=== PATIENT | female | born 1980 | race Caucasian/White ===

== ENCOUNTER 2024-11-30 00:46 | Inpatient (IN) | payer OTHER ==
[2024-11-30] MEDS: SODIUM CHLORIDE 0.9% 1,000 ML IV ONE (01:18)
[2024-11-30] MEDS: METOCLOPRAMIDE 5 MG/ML 2 ML VIAL IVP STA (01:20)
[2024-11-30] MEDS: MORPHINE SULFATE 4 MG/ML SYRINGE IVP PRN (01:37)
[2024-11-30 01:54] LABS: Basophils # (A) 0.03 10*3/uL (0.00-0.10); Basophils % (A) 0.3 %; Eosinophils # (A) 0.19 10*3/uL (0.04-0.35); Eosinophils % (A) 2.1 %; HCT 27.7 % (37.2-46.3); Lymphocytes # (A) 2.22 10*3/uL (0.90-5.00); Lymphocytes % (A) 24.3 %; MCH 15.6 pg (27.0-32.0); MCHC 25.3 g/dL (32.0-37.0); MCV 61.6 fL (80.0-97.0); Monocytes # (A) 0.74 10*3/uL (0.20-1.00); Monocytes % (A) 8.1 %; Neutrophils % (A) 64.8 %; Platelet Count 346 10*3/uL (140-440); RDW 22.5 % (11.5-14.5); WBC 9.12 10*3/uL (4.50-10.00)
[2024-11-30 02:12] LABS: ALT 49 U/L (4-34); AST 102 U/L (14-36); African American GFR (CKD) >90 (>60 ml/min/1.73 sqM); Albumin 3.6 g/dL (3.5-5.0); Alkaline Phosphatase 93 U/L (38-126); Anion Gap 8 mmol/L; Blood Urea Nitrogen 8 mg/dL (7-17); Calcium 8.9 mg/dL (8.4-10.2); Carbon Dioxide 26 mmol/L (22-30); Chloride 105 mmol/L (98-107); Glucose 119 mg/dL (74-99); Non-African American GFR(CKD) >90 (>60 ml/min/1.73 sqM); Sodium 139 mmol/L (137-145); Total Bilirubin 0.6 mg/dL (0.2-1.3); Total Protein 6.4 g/dL (6.3-8.2)
[2024-11-30] MEDS ORDERED: NALOXONE 0.4 MG/ML 1 ML VIAL IV PRN (02:15)
[2024-11-30 02:17] LABS: Anisocytosis (M) Present
--- NOTE | 2024-11-30 02:19 | ED ---
Abdominal Pain HPI - General Chief Complaint: Abdominal Pain Stated Complaint: Kidney stones Time Seen by Provider: 11/30/24 00:57 Source: patient, EMS Mode of arrival: EMS Limitations: no limitations - History of Present Illness Initial Comments: 44-year-old female presenting as a transfer from [facility]. Patient started having right-sided flank pain last night that wraps around to the abdomen and worsened today. She was seen at [facility] and was diagnosed with UTI and 3 mm ureteral stone. She was treated with 1 g of Rocephin and tra nsferred here for urology. She was also found to be anemic with a hemoglobin of 7.2. Patient has a history of anemia requiring transfusion. She had a colonoscopy earlier this year in September and also had surgery for severe hemorrhoids which were causing a significant amount of bleeding. She does r eport that her stool is a bit darker than usual. No bright red rectal bleeding. No blood thinners. No hematuria. - Related Data Home Medications Medication Instructions Recorded Confirmed Baclofen [Lioresal] 10 mg PO BID PRN 11/30/24 11/30/24 Cetirizine HCl [Zyrtec] 10 mg PO HS 11/30/24 11/30/24 Ipratropium-Albuterol Nebulize 3 ml INHALATION RT-QID PRN 11/30/24 11/30/24 [Duoneb 0.5 mg-3 mg/3 ml Soln] Levothyroxine Sodium [Synthroid] 200 mcg PO DAILY 11/30/24 11/30/24 Montelukast [Singulair] 10 mg PO HS 11/30/24 11/30/24 Omeprazole [PriLOSEC] 20 mg PO DAILY 11/30/24 11/30/24 hydrOXYzine pamoate [Vistaril] 25 mg PO HS PRN 11/30/24 11/30/24 rOPINIRole HCL [Requip] 1.5 mg PO HS PRN 11/30/24 11/30/24 rOPINIRole HCL [Requip] 3 mg PO HS 11/30/24 11/30/24 Allergies Allergy/AdvReac Type Severity Reaction Status Date / Time clindamycin Allergy Rash/Hives Verified 11/30/24 08:56 onion Allergy Rash/Hives Verified 11/30/24 08:56 spider venom Allergy Rash/Hives Verified 11/30/24 08:56 sulfamethoxazole Allergy Rash/Hives Verified 11/30/24 08:56 [From Bactrim] trimethoprim [From Bactrim] Allergy Rash/Hives Verified 11/30/24 08:56 Review of Systems ROS Statement: Those systems with pertinent positive or pertinent negative responses have been documented in the HPI. ROS Other: All systems not noted in ROS Statement are negative. Past Medical History Past Medical History: GERD/Reflux, Thyroid Disorder General Exam Limitations: no limitations General appearance: alert, in no apparent distress Head exam: Present: atraumatic, normocephalic, normal inspection Eye exam: Present: normal appearance, EOMI Neck exam: Present: normal inspection. Absent: meningismus Respiratory exam: Present: normal lung sounds bilaterally. Absent: respiratory distress, wheezes, rales, rhonchi, stridor Cardiovascular Exam: Present: regular rate, normal rhythm, normal heart sounds. Absent: systolic murmur, diastolic murmur, rubs, gallop, clicks Rectal exam: Present: normal inspection, normal rectal tone Neurological exam: Present: alert, oriented X3 Psychiatric exam: Present: normal affect, normal mood Skin exam: Present: warm, dry, normal color Course Vital Signs 11/30/24 11/30/24 11/30/24 00:48 04:09 05:50 Temperature 98.0 F 97.6 F 97.6 F Pulse Rate 82 86 95 Respiratory 18 18 18 Rate Blood Pressure 132/75 144/80 124/68 O2 Sat by Pulse 97 96 95 Oximetry Medical Decision Making - Medical Decision Making Was pt. sent in by a medical professional or institution (, PA, [employer], urgent care, hospital, or [facility]...) When possible be specific @ -Transferred from [facility] Did you speak to anyone other than the patient for history (EMS, parent, family, police, friend...)? What history was obtained from this source @ -No Did you review nursing and triage notes (agree or disagree)? Why? @ -I reviewed and agree with nursing and triage notes Were old charts reviewed (outside hosp., previous admission, EMS record, old EKG, old radiological studies, urgent care reports/EKG's, [facility] records)? Report findings @ -Reviewed [facility] records Differential Diagnosis (chest pain, altered mental status, abdominal pain women, abdominal pain men, vaginal bleeding, weakness, fever, dyspnea, syncope, headache, dizziness, GI bleed, back pain, seizure, CVA, palpatations, mental health, musculoskeletal)? @ -Not applicable EKG interpreted by me (3pts min.). @ -As above X-rays interpreted by me (1pt min.). @ -None done CT interpreted by me (1pt min.). @ -None done U/S interpreted by me (1pt. min.). @ -None done What testing was considered but not performed or refused? (CT, X-rays, U/S, labs)? Why? @ -None What meds were considered but not given or refused? Why? @ -None Did you discuss the management of the patient with other professionals (professionals i.e. , PA, [employer], lab, RT, psych nurse, social media community manager, production broaching machine operator, te acher, registration officer, manager of case management)? Give summary @ -My attending spoke with the sound physician on-call who accepted admission Was smoking cessation discussed for >3mins.? @ -No Was critical care preformed (if so, how long)? @ -No Were there social determinants of health that impacted care today? How? (Homelessness, low income, unemployed, alcoholism, drug addiction, transportation, low edu. Level, literacy, decrease access to med. care, residential, rehab)? @ -No Was there de-escalation of care discussed even if they declined (Discuss DNR or withdrawal of care, Hospice)? DNR status @ -No What co-morbidities impacted this encounter? (DM, HTN, Smoking, COPD, CAD, Cancer, CVA, ARF, Chemo, Hep., AIDS, mental health diagnosis, sleep apnea, morbid obesity)? @ -None Was patient admitted / discharged? Hospital course, mention meds given and route, prescriptions, significant lab abnormalities, going to OR and other pertinent info. @ -44-year-old female transferred from [facility] to our facility for UTI with kidney stone. She has a 3 mm ureteral stone with UTI, she was treated with 1 g of Rocephin at [facility]. She was also found to have a hemoglobin of 7, patient states she has history of anemia. She does state that earlier today her stools were darker, negative occult. She does have history of severe hemorrhoids, she had a colonoscopy earlier this year and surgery for her hemorrhoids and she has not had bleeding from them since. Patient will be admitted for evaluation by urology and for monitoring hemoglobin. She is agreeable with this plan. I discussed this case with my attending Dr. Henao Undiagnosed new problem with uncertain prognosis? @ -No Drug Therapy requiring intensive monitoring for toxicity (Heparin, Nitro, Insulin, Cardizem)? @ -No Were any procedures done? @ -No Diagnosis/symptom? @ -UTI with kidney stone, anemia Acute, or Chronic, or Acute on Chronic? @ -Acute Uncomplicated (without systemic symptoms) or Complicated (systemic symptoms)? @ -Complicated Side effects of treatment? @ -No Exacerbation, Progression, or Severe Exacerbation? @ -No Poses a threat to life or bodily function? How? (Chest pain, USA, AR, pneumonia, PE, COPD, DKA, ARF, appy, cholecystitis, CVA, Diverticulitis, Homicidal, Suicidal, threat to staff... and all critical care pts) @ -Potential - Lab Data Result diagrams: 11/30/24 06:54 11/30/24 06:54 Lab Results 11/30/24 11/30/24 11/30/24 Range/Units 01:27 01:27 01:27 WBC 9.12 (4.50-10.00) 10*3/uL RBC 4.50 (4.10-5.20) 10*6/uL Hgb 7.0 L (12.0-15.0) g/dL Hct 27.7 L (37.2-46.3) % MCV 61.6 L (80.0-97.0) fL MCH 15.6 L (27.0-32.0) pg MCHC 25.3 L (32.0-37.0) g/dL Plt Count 346 (140-440) 10*3/uL MPV 9.0 L (9.5-12.2) fL Immature Gran % (Auto) 0.4 % Neutrophils % 64.8 % Lymphocytes % 24.3 % Monocytes % 8.1 % Eosinophils % 2.1 % Basophils % 0.3 % Immature Gran # 0.04 (0.00-0.04) 10*3/uL Neutrophils # 5.90 (1.80-7.70) 10*3/uL Lymphocytes # 2.22 (0.90-5.00) 10*3/uL Monocytes # 0.74 (0.20-1.00) 10*3/uL Eosinophils # 0.19 (0.04-0.35) 10*3/uL Basophils # 0.03 (0.00-0.10) 10*3/uL Differential Comment [employer] Manual Slide Review Performed Anisocytosis (manual) Present Sodium 139 (137-145) mmol/L Potassium 4.0 (3.5-5.1) mmol/L Chloride 105 (98-107) mmol/L Carbon Dioxide 26 (22-30) mmol/L Anion Gap 8 mmol/L BUN 8 (7-17) mg/dL Creatinine 0.66 (0.52-1.04) mg/dL Est GFR (CKD-EPI)AfAm >90 (>60 ml/min/1.73 sqM) Est GFR (CKD-EPI)NonAf >90 (>60 ml/min/1.73 sqM) Glucose 119 H (74-99) mg/dL Plasma Lactic Acid Karthik 1.1 (0.7-2.0) mmol/L Calcium 8.9 (8.4-10.2) mg/dL Total Bilirubin 0.6 (0.2-1.3) mg/dL AST 102 H (14-36) U/L ALT 49 H (4-34) U/L Alkaline Phosphatase 93 (38-126) U/L Total Protein 6.4 (6.3-8.2) g/dL Albumin 3.6 (3.5-5.0) g/dL Stool Occult Blood (Negative) 11/30/24 Range/Units 02:02 WBC (4.50-10.00) 10*3/uL RBC (4.10-5.20) 10*6/uL Hgb (12.0-15.0) g/dL Hct (37.2-46.3) % MCV (80.0-97.0) fL MCH (27.0-32.0) pg MCHC (32.0-37.0) g/dL Plt Count (140-440) 10*3/uL MPV (9.5-12.2) fL Immature Gran % (Auto) % Neutrophils % % Lymphocytes % % Monocytes % % Eosinophils % % Basophils % % Immature Gran # (0.00-0.04) 10*3/uL Neutrophils # (1.80-7.70) 10*3/uL Lymphocytes # (0.90-5.00) 10*3/uL Monocytes # (0.20-1.00) 10*3/uL Eosinophils # (0.04-0.35) 10*3/uL Basophils # (0.00-0.10) 10*3/uL Differential Comment Manual Slide Review Anisocytosis (manual) Sodium (137-145) mmol/L Potassium (3.5-5.1) mmol/L Chloride (98-107) mmol/L Carbon Dioxide (22-30) mmol/L Anion Gap mmol/L BUN (7-17) mg/dL Creatinine (0.52-1.04) mg/dL Est GFR (CKD-EPI)AfAm (>60 ml/min/1.73 sqM) Est GFR (CKD-EPI)NonAf (>60 ml/min/1.73 sqM) Glucose (74-99) mg/dL Plasma Lactic Acid Karthik (0.7-2.0) mmol/L Calcium (8.4-10.2) mg/dL Total Bilirubin (0.2-1.3) mg/dL AST (14-36) U/L ALT (4-34) U/L Alkaline Phosphatase (38-126) U/L Total Protein (6.3-8.2) g/dL Albumin (3.5-5.0) g/dL Stool Occult Blood Negative (Negative) Disposition Clinical Impression: UTI (urinary tract infection), Kidney stone, Anemia Disposition: ADMITTED IP TO THIS HOSP Condition: Fair
[2024-11-30] MEDS: NICOTINE 21MG/24HR PATCH TRANSDERM STA (02:27)
[2024-11-30 04:52] LABS: WBC,Urine <1 /hpf (0-5)
[2024-11-30] MEDS ORDERED: ACETAMINOPHEN TAB 325 MG TAB PO PRN (05:08)
--- NOTE | 2024-11-30 05:15 | P.HPIM ---
History of Present Illness H&P Date: 11/30/24 History of present illness; Patient is a 44-year-old female with history of hypothyroidism, anemia who presents with right-sided flank pain. Patient is a transfer from [place] and was diagnosed with UTI and [address] abdomen pelvis showed calculus of distal right ureter 3 mm stone with no hydronephrosis. UA was positive for nitrates, bacteria, RBC 2+, blood. She was given 1 g Rocephin. Patient states that pain began Wednesday night and travels from her right flank to her right groin. She does have some mild burning sensation while urinating. She is experienced no hematuria and takes no blood thinners. She denies any rectal bleeding. She also has some associated nausea which has improved at this time. Currently she denies fever, chills, chest pain, dyspnea, and dizziness. Spoke with the ER physician, patient admission was accepted by internal medicine service for treatment. REVIEW OF SYSTEMS: Pertinent positives and negatives noted in HPI. PHYSICAL EXAMINATION: Vitals reviewed GENERAL: Resting comfortably in bed. Obese. EYES: PERRL, no scleral injection or icterus. No vision loss HENT: Normocephalic, atraumatic, hearing grossly intact, moist mucous membranes NECK: No tracheal deviation, full range of motion. CARDIOVASCULAR: S1 and S2 present. No murmurs, rubs, or gallops. PULMONARY: Distant breath sounds ABDOMEN: Soft, right-sided tenderness, nondistended. No palpable organomegaly. MUSCULOSKELETAL: No apparent joint swelling and deformities. EXTREMITIES: No apparent cyanosis, clubbing. No pedal edema. NEUROLOGICAL: Alert and oriented. Gross neurological examination with no apparent focal deficits. SKIN: No apparent rashes. ER FINDINGS: Labs significant for hemoglobin 7.0, platelets 346, glucose 119, AST 102, ALT 49. Imaging and labs from other facility reviewed in HPI Assessment and Plan: In summary, patient is a 44-year-old female with history of hypothyroidism, anemia who presents with right-sided flank pain. # Right sided nephrolithiasis without hydroureteronephrosis #Pyelonephritis Begin ketorolac IVP every 6 hours, acetaminophen 650 mg every 4 hours as needed for pain Begin IV NS at 130 Begin Flomax 0.4 mg daily Begin Zofran every 8 hours as needed for nausea and vomiting Begin ceftriaxone 2 g IVP Repeat UA ordered, outside hospital records showing pansensitive E. coli in urine culture Urology consulted #Chronic microcytic anemia Hemodynamically stable, no known source of active bleed Iron panel ordered Type and screen if hemoglobin falls below 7 Monitor CBC - Consideration of hemoglobin electrophoresis Chronic medical conditions Hypothyroidism GERD Resume home meds once verified DVT ppx: early ambulation, hold anticoagulation due to bleeding risk Code status: Full code F: IV fluids E: Replete as needed N: N.p.o. A: Ambulatory Anticipated discharge place: Pending clinical course Anticipated discharge time: Pending clinical course Dictation was produced using [employer] dictation software. Please excuse any grammatical, word or spelling errors. I saw and evaluated the patient during the mora and critical portions of this encounter, and discussed the case in detail with the resident author of this note, I agree with the Assessment and Plan, and my changes, if any, are highlighted in blue. Past Medical History Past Medical History: GERD/Reflux, Thyroid Disorder Medications and Allergies Allergies Allergy/AdvReac Type Severity Reaction Status Date / Time clindamycin Allergy Rash/Hives Verified 11/30/24 00:56 onion Allergy Rash/Hives Verified 11/30/24 00:56 spider venom Allergy Rash/Hives Verified 11/30/24 00:56 sulfamethoxazole Allergy Rash/Hives Verified 11/30/24 00:56 [From Bactrim] trimethoprim [From Bactrim] Allergy Rash/Hives Verified 11/30/24 00:56 Physical Exam Osteopathic Statement: *. No significant issues noted on an osteopathic structural exam other than those noted in the History and Physical/Consult. Vitals: Vital Signs Temp Pulse Resp BP Pulse Ox 11/30/24 00:48 98.0 F 82 18 132/75 97 Intake and Output 11/29/24 11/29/24 11/30/24 14:59 22:59 06:59 Other: Weight 127.006 kg Results CBC & Chem 7: 11/30/24 01:27 11/30/24 01:27 Labs: Abnormal Lab Results - Last 24 Hours (Table) 11/30/24 11/30/24 Range/Units 01:27 01:27 Hgb 7.0 L (12.0-15.0) g/dL Hct 27.7 L (37.2-46.3) % MCV 61.6 L (80.0-97.0) fL MCH 15.6 L (27.0-32.0) pg MCHC 25.3 L (32.0-37.0) g/dL MPV 9.0 L (9.5-12.2) fL Glucose 119 H (74-99) mg/dL AST 102 H (14-36) U/L ALT 49 H (4-34) U/L
[2024-11-30] MEDS: SODIUM CHLORIDE 0.9% 1,000 ML IV SCH (05:52)
[2024-11-30 06:06] LABS: Color,Urine Yellow
[2024-11-30 06:07] LABS: Bilirubin,Urine Negative (Negative); Blood,Urine Small (Negative); Glucose,Urine (UA) Negative (Negative); Ketones,Urine Negative (Negative); PH, Urine 6.5 (5.0-8.0); Protein,Urine Negative (Negative); Specific Gravity,Urine 1.007 (1.001-1.035)
[2024-11-30 06:08] LABS: Appearance,Urine Turbid (Clear); Leukocyte Esterase,Urine Large (Negative); Nitrite,Urine Positive (Negative); Urobilinogen,Urine <2.0 mg/dL (<2.0)
[2024-11-30 07:55] LABS: Basophils # (A) 0.05 10*3/uL (0.00-0.10); Basophils % (A) 0.6 %; Eosinophils # (A) 0.12 10*3/uL (0.04-0.35); Eosinophils % (A) 1.4 %; HCT 29.7 % (37.2-46.3); HGB 7.2 g/dL (12.0-15.0); Lymphocytes % (A) 23.1 %; MCH 15.4 pg (27.0-32.0); MCHC 24.2 g/dL (32.0-37.0); MCV 63.5 fL (80.0-97.0); Mean Platelet Volume 9.3 fL (9.5-12.2); Monocytes # (A) 0.82 10*3/uL (0.20-1.00); Monocytes % (A) 9.5 %; Neutrophils # (A) 5.64 10*3/uL (1.80-7.70); Neutrophils % (A) 64.9 %; Platelet Count 373 10*3/uL (140-440); RBC 4.68 10*6/uL (4.10-5.20); RDW 22.6 % (11.5-14.5); WBC 8.67 10*3/uL (4.50-10.00)
[2024-11-30 08:06] LABS: ALT 52 U/L (4-34); AST 64 U/L (14-36); African American GFR (CKD) >90 (>60 ml/min/1.73 sqM); Albumin 3.5 g/dL (3.5-5.0); Alkaline Phosphatase 89 U/L (38-126); Anion Gap 6 mmol/L; Blood Urea Nitrogen 9 mg/dL (7-17); Calcium 8.7 mg/dL (8.4-10.2); Carbon Dioxide 23 mmol/L (22-30); Chloride 111 mmol/L (98-107); Glucose 93 mg/dL (74-99); Non-African American GFR(CKD) >90 (>60 ml/min/1.73 sqM); Potassium 4.6 mmol/L (3.5-5.1); Sodium 140 mmol/L (137-145); Total Bilirubin 0.5 mg/dL (0.2-1.3); Total Protein 6.3 g/dL (6.3-8.2)
[2024-11-30] MEDS: cefTRIAXone 2 GM in DEXTROSE 5% IN WATER 50 ML IVPB SCH (09:09)
[2024-11-30] MEDS: TAMSULOSIN 0.4 MG CAP.ER.24H PO SCH (09:09)
[2024-11-30 15:45] LABS: % Iron Saturation 4.02 (12.00-45.00); Iron 16 UG/DL (50-170); Total Iron Binding Capacity 398 UG/DL (228-460)
[2024-11-30] MEDS: KETOROLAC 15 MG/ML 1 ML VIAL IVP PRN (17:56)
[2024-11-30] MEDS: MONTELUKAST 10 MG TAB PO SCH (20:18)
[2024-11-30] MEDS: polyethylene glycoL 3350 17 GM POWD.PACK PO SCH (21:25)
[2024-11-30] MEDS: PSYLLIUM HUSK 100% 6 GM PACKET PO SCH (21:25)
--- NOTE | 2024-11-30 21:58 | P.GSCN ---
History of Present Illness Consult date: 11/30/24 Reason for Consult: Ureteral stone History of present illness: This is a 44-year-old female presents as a transfer from [facility] f or intractable pain for ureteral stone. Patient presented to [facility] with ongoing right-sided flank pain for the past 2 weeks. Pain is associated with bladder pressure. Denied any fevers, chills, nausea or vomiting. She does have a history of kidney stones but never required any surgical intervention. She underwent a CT abdomen and pelvis that showed evidence of a 3 mm right-sided distal stone with hydronephrosis, = urine culture from [facility] is growing E. coli which is singer susceptible. She has been on ceftriaxone. She is hemodynamically stable and her white count is within normal limits. On evaluation this morning she continues to have persistent flank pain. Review of Systems - Constitutional Denies fever, Denies weight loss - EENT Ears, nose, mouth and throat: Denies dysphagia - Gastrointestinal Reports abdominal pain, Denies nausea, Denies vomiting - Integumentary Denies rash, Denies unusual bruising - Neurological Denies headaches, Denies syncope Past Medical History Past Medical History: GERD/Reflux, Thyroid Disorder Additional Past Medical History / Comment(s): Anemia History of Any Multi-Drug Resistant Organisms: None Reported Past Surgical History: Cholecystectomy, Hysterectomy Smoking Status: Current every day smoker Medications and Allergies Home Medications Medication Instructions Recorded Confirmed Type Baclofen [Lioresal] 10 mg PO BID PRN 11/30/24 11/30/24 History Cetirizine HCl [Zyrtec] 10 mg PO HS 11/30/24 11/30/24 History Ipratropium-Albuterol Nebulize 3 ml INHALATION RT-QID PRN 11/30/24 11/30/24 History [Duoneb 0.5 mg-3 mg/3 ml Soln] Levothyroxine Sodium [Synthroid] 200 mcg PO DAILY 11/30/24 11/30/24 History Montelukast [Singulair] 10 mg PO HS 11/30/24 11/30/24 History Omeprazole [PriLOSEC] 20 mg PO DAILY 11/30/24 11/30/24 History hydrOXYzine pamoate [Vistaril] 25 mg PO HS PRN 11/30/24 11/30/24 History rOPINIRole HCL [Requip] 1.5 mg PO HS PRN 11/30/24 11/30/24 History rOPINIRole HCL [Requip] 3 mg PO HS 11/30/24 11/30/24 History Allergies Allergy/AdvReac Type Severity Reaction Status Date / Time clindamycin Allergy Rash/Hives Verified 11/30/24 08:56 onion Allergy Rash/Hives Verified 11/30/24 08:56 spider venom Allergy Rash/Hives Verified 11/30/24 08:56 sulfamethoxazole Allergy Rash/Hives Verified 11/30/24 08:56 [From Bactrim] trimethoprim [From Bactrim] Allergy Rash/Hives Verified 11/30/24 08:56 Surgical - Exam Vital Signs Temp Pulse Resp BP Pulse Ox 98.0 F 82 18 132/75 97 11/30/24 00:48 11/30/24 00:48 11/30/24 00:48 11/30/24 00:48 11/30/24 00:48 - General no distress, moderate pain - Eyes normal ocular movement, no pale - ENT normal nares, normal mucosa - Respiratory normal expansion, normal respiratory effort - Abdomen Abdomen: soft, tender (right flank) Results - Labs 11/30/24 06:54 11/30/24 06:54 Abnormal Lab Results - Last 24 Hours (Table) 11/30/24 11/30/24 11/30/24 Range/Units 01:27 01:27 04:09 Hgb 7.0 L (12.0-15.0) g/dL Hct 27.7 L (37.2-46.3) % MCV 61.6 L (80.0-97.0) fL MCH 15.6 L (27.0-32.0) pg MCHC 25.3 L (32.0-37.0) g/dL MPV 9.0 L (9.5-12.2) fL Chloride (98-107) mmol/L Glucose 119 H (74-99) mg/dL Iron (50-170) UG/DL % Saturation (12.00-45.00) AST 102 H (14-36) U/L ALT 49 H (4-34) U/L Urine Appearance Turbid H (Clear) 11/30/24 11/30/24 Range/Units 06:54 06:54 Hgb 7.2 L (12.0-15.0) g/dL Hct 29.7 L (37.2-46.3) % MCV 63.5 L (80.0-97.0) fL MCH 15.4 L (27.0-32.0) pg MCHC 24.2 L (32.0-37.0) g/dL MPV 9.3 L (9.5-12.2) fL Chloride 111 H (98-107) mmol/L Glucose (74-99) mg/dL Iron 16 L (50-170) UG/DL % Saturation 4.02 L (12.00-45.00) AST 64 H (14-36) U/L ALT 52 H (4-34) U/L Urine Appearance (Clear) Diabetes panel 11/30/24 11/30/24 Range/Units 01:27 06:54 Sodium 139 140 (137-145) mmol/L Potassium 4.0 4.6 (3.5-5.1) mmol/L Chloride 105 111 H (98-107) mmol/L Carbon Dioxide 26 23 (22-30) mmol/L BUN 8 9 (7-17) mg/dL Creatinine 0.66 0.61 (0.52-1.04) mg/dL Glucose 119 H 93 (74-99) mg/dL Calcium 8.9 8.7 (8.4-10.2) mg/dL AST 102 H 64 H (14-36) U/L ALT 49 H 52 H (4-34) U/L Alkaline Phosphatase 93 89 (38-126) U/L Total Protein 6.4 6.3 (6.3-8.2) g/dL Albumin 3.6 3.5 (3.5-5.0) g/dL Calcium panel 11/30/24 11/30/24 Range/Units 01:27 06:54 Calcium 8.9 8.7 (8.4-10.2) mg/dL Albumin 3.6 3.5 (3.5-5.0) g/dL Pituitary panel 11/30/24 11/30/24 Range/Units 01:27 06:54 Sodium 139 140 (137-145) mmol/L Potassium 4.0 4.6 (3.5-5.1) mmol/L Chloride 105 111 H (98-107) mmol/L Carbon Dioxide 26 23 (22-30) mmol/L BUN 8 9 (7-17) mg/dL Creatinine 0.66 0.61 (0.52-1.04) mg/dL Glucose 119 H 93 (74-99) mg/dL Calcium 8.9 8.7 (8.4-10.2) mg/dL Adrenal panel 11/30/24 11/30/24 Range/Units 01:27 06:54 Sodium 139 140 (137-145) mmol/L Potassium 4.0 4.6 (3.5-5.1) mmol/L Chloride 105 111 H (98-107) mmol/L Carbon Dioxide 26 23 (22-30) mmol/L BUN 8 9 (7-17) mg/dL Creatinine 0.66 0.61 (0.52-1.04) mg/dL Glucose 119 H 93 (74-99) mg/dL Calcium 8.9 8.7 (8.4-10.2) mg/dL Total Bilirubin 0.6 0.5 (0.2-1.3) mg/dL AST 102 H 64 H (14-36) U/L ALT 49 H 52 H (4-34) U/L Alkaline Phosphatase 93 89 (38-126) U/L Total Protein 6.4 6.3 (6.3-8.2) g/dL Albumin 3.6 3.5 (3.5-5.0) g/dL Assessment and Plan Assessment: 44-year-old female with history of a 3 mm right-sided distal ureteral stone, having intractable pain. Urine culture from outside hospital showed E. coli she is being on ceftriaxone. At this time we will continue with pain control and IV fluid for another 24 hours, if she continues to have pain tomorrow morning then we will proceed with right-sided ureteroscopy with holmium laser. At that point patient will be on IV antibiotics for 48 hours. Risk-benefit and rationale of surgery was discussed in detail -N.p.o. past midnight - Continue ceftriaxone - OR for right-sided ureteroscopy with holmium laser lithotripsy stone basketing and stent insertion tomorrow, if pain persists
[2024-11-30] MEDS: NICOTINE 21MG/24HR PATCH TRANSDERM SCH (23:54)
[2024-12-01] MEDS: IPRATROPIUM-ALBUTEROL 3 ML NEB INHALATION PRN (00:20)
[2024-12-01] MEDS: IV FLUID CONTINUATION 1,000 ML IV ONE (08:24)
[2024-12-01] MEDS: ONDANSETRON 4 MG/2 ML VIAL IVP PRN (08:35)
[2024-12-01] MEDS: DEXAMETHASONE SOD PHOSPHATE 4 MG/ML 1 ML VIAL IVP STA (08:36)
[2024-12-01] MEDS ORDERED: PROPOFOL 10 MG/ML 20 ML VIAL IV ONE (08:39)
[2024-12-01] MEDS ORDERED: MIDAZOLAM 2 MG/2 ML VIAL ONE (08:39)
[2024-12-01] MEDS ORDERED: KETOROLAC 15 MG/ML 1 ML VIAL ONE (08:39)
[2024-12-01] MEDS ORDERED: SUCCINYLCHOLINE CHLORIDE 200 MG/10 ML VIAL IV ONE (08:39)
[2024-12-01] MEDS ORDERED: fentaNYL (PF) 50 MCG/ML 2 ML AMP ONE (08:39)
[2024-12-01] MEDS ORDERED: LIDOCAINE 1% INJ 10MG/ML (20 ML MDV) ONE (08:39)
--- NOTE | 2024-12-01 09:16 | P.OP ---
Date of Procedure: 12/01/24 Preoperative Diagnosis: Right ureteral calculus with obstruction and colic, urinary tract infection Postoperative Diagnosis: Right ureteral calculus, passed, urinary tract infection Procedure(s) Performed: Cystoscopy, right ureteroscopy with retrograde pyelogram Anesthesia: DARRYL Surgeon: Tej Colmenares Estimated Blood Loss (ml): 0 Pathology: none sent Condition: stable Disposition: PACU Indications for Procedure: The patient is 44. She was referred from [facility] because of an obstructing distal right ureteral stone and a urinary tract infection. She was seen by . She was afebrile. Her white count was normal. Her pain was moderate. Plan was to give her antibiotics overnight and then proceed with a right ureteroscopy and laser lithotripsy to the distal right ureteral stone. Patient is still having pain this morning. Description of Procedure: Patient brought to the operating suite. Given a general anesthetic. Placed lithotomy position sterile prep and drape. The urethra is intubated with a 21 Egyptian sheath and Foroblique lens. It is normal. The bladder wall shows minimal inflammation. Both ureteral orifices are identified. The right ureteral orifice is dilated with an 8 cone-tip catheter. I then passed the semirigid scope up into the distal ureter and do not see a stone. There is edema probably where the stone was. I passed the scope up to about the iliac vessels and see no evidence of stone. I inject contrast and do a retrograde pyelogram all the way up to into the collecting system and see no obstructing stone. I observed the contrast to drain nicely. I do pull out ureteroscopy and there is no stone. The patient must of passed a stone despite having the pain. The bladder is drained. The patient is awakened and returned recovery in good condition. Impression right ureteral calculus passed. Urinary tract infection being treated.
--- NOTE | 2024-12-01 09:30 | FL ---
EXAMINATION TYPE: FL urography retrograde Intraoperative/procedural fluoroscopic services were provid ed. CLINICAL INDICATION:Female, 44 years old with history of Cysto for Rt Kidney Stone; , [facility] FINDINGS: Cystoscopy for right sided stone. No radiographic evidence for complication. Total fluoroscopy time is 21.4 seconds. DAP: 9.0550 Gycm2 Please see the operative/procedural note for further details. [facility], , 12/01/2024 9:28 AM
[2024-12-01] MEDS: LEVOTHYROXINE 100 MCG TAB PO SCH (10:29)
[2024-12-01] MEDS: PANTOPRAZOLE 40 MG TABLET PO SCH (10:29)
[2024-12-01 10:35] VITALS: RESP 18
[2024-12-01 11:17] LABS: Basophils # (A) 0.04 10*3/uL (0.00-0.10); Basophils % (A) 0.5 %; Eosinophils # (A) 0.08 10*3/uL (0.04-0.35); HCT 28.7 % (37.2-46.3); Lymphocytes # (A) 0.91 10*3/uL (0.90-5.00); Lymphocytes % (A) 11.4 %; MCH 15.5 pg (27.0-32.0); MCHC 24.4 g/dL (32.0-37.0); MCV 63.4 fL (80.0-97.0); Mean Platelet Volume 9.6 fL (9.5-12.2); Monocytes # (A) 0.21 10*3/uL (0.20-1.00); Monocytes % (A) 2.6 %; Neutrophils # (A) 6.64 10*3/uL (1.80-7.70); Neutrophils % (A) 83.2 %; Platelet Count 375 10*3/uL (140-440); RBC 4.53 10*6/uL (4.10-5.20); RDW 22.3 % (11.5-14.5); WBC 7.98 10*3/uL (4.50-10.00)
[2024-12-01 11:35] LABS: African American GFR (CKD) >90 (>60 ml/min/1.73 sqM); Anion Gap 7 mmol/L; Blood Urea Nitrogen 8 mg/dL (7-17); Calcium 8.4 mg/dL (8.4-10.2); Carbon Dioxide 23 mmol/L (22-30); Chloride 110 mmol/L (98-107); Glucose 128 mg/dL (74-99); Non-African American GFR(CKD) >90 (>60 ml/min/1.73 sqM); Potassium 4.6 mmol/L (3.5-5.1); Sodium 140 mmol/L (137-145)
[2024-12-01] MEDS ORDERED: SENNOSIDES-DOCUSATE SODIUM 1 EACH TAB PO STA (11:56)
[2024-12-01 12:27] LABS: Anisocytosis (M) Present
[2024-12-01 12:28] LABS: Stomatocytes Present
[2024-12-01 12:39] VITALS: BP 162/89; PULSE 79; TEMP 98.2
[2024-12-01] MEDS: SENNOSIDES-DOCUSATE SODIUM 1 EACH TAB PO STA (12:51)
[2024-12-01] MEDS ORDERED: IBUPROFEN 800 MG TAB PO PRN (14:01)
--- NOTE | 2024-12-01 14:30 | P.PN ---
Subjective Progress Note Date: 12/01/24 Hospital Course: Patient is a 44-year-old female with history of hypothyroidism, anemia who presents with right-sided flank pain. Patient is a transfer from [place] and was diagnosed with UTI and [address] abdomen pelvis showed calculus of distal right ureter 3 mm stone with no hydronephrosis. UA was positive for nitrates, bacteria, RBC 2+, blood. She was given 1 g Rocephin. Patient states that pain began Wednesday night and travels from her right flank to her right groin. She does have some mild burning sensation while urinating. She is experienced no hematuria and takes no blood thinners. She denies any rectal bleeding. She also has some associated nausea which has improved at this time. Currently she denies fever, chills, chest pain, dyspnea, and dizziness. Labs significant for hemoglobin 7.0, platelets 346, glucose 119, AST 102, ALT 49. Imaging and labs from other facility reviewed in HPI: CT abdomen pelvis showed calculus of distal right ureter 3 mm stone with no hydronephrosis. Subjective: Patient seen and examined at bedside. No acute events overnight. Patient complaining of extreme pain from right flank that radiates to groin. States the pain is still there despite procedure. Pertinent positives and negatives as discussed above, a complete review of systems was performed and all other systems are negative. Vitals: Signs Reviewed Physical Exam: General: nontoxic, no distress, appears at stated age Derm: warm, dry, intact Head: atraumatic, normocephalic, symmetric Eyes: EOMI, anicteric sclera Mouth: no lip lesion, mucus membranes moist Cardiovascular: S1 S2 reg, no murmur, rubs, or gallops Lungs: CTA bilateral, no rhonchi, no rales, no accessory muscle use Abdominal: soft, right CVA tenderness, no appreciable organomegaly Extremities: no gross muscle atrophy, no edema, no contractures Neuro: Alert, Oriented, CNII-XII grossly intact, gait normal Psych: well appearing, appropriate affect Data Received Today: Pertinent Labs: Hemoglobin trended down from 6.2 => 7.0, BMP unremarkable, creatinine 0.71, BUN 8 Imaging: N/A Assessment and Plan: Patient is a 44-year-old female with history of hypothyroidism, anemia who presents with right-sided flank pain. #Acute pyelonephritis #Nephrolithiasis Acetaminophen 650 mg every 4 hours as needed, ibuprofen 800 mg p.o. 4 times daily as needed, [place] 5-325 mg p.o. every 6 hours as needed for pain Normal saline at 75 cc an hour Flomax 0.4 mg daily Zofran every 8 hours as needed Continue with ceftriaxone 2 g IVP every 24 hours Repeat UA ordered, outside hospital records showing pansensitive E. coli in urine culture Urology note reviewed, s/p cystoscopy, right ureteroscopy with retrograde pyelogram, is believed that the calculus has passed, no urinary stent necessary #Iron Deficiency Anemia Hemoglobin stable, no known source of active bleed Ferrous sulfate 325 mg p.o. daily with vitamin C Type and screen if hemoglobin falls below 7 Monitor CBC Consideration of hemoglobin electrophoresis Resolved: #Right sided nephrolithiasis without hydroureteronephrosis Chronic medical conditions Hypothyroidism, Synthroid 200 mcg p.o. daily GERD: Protonix DVT ppx: early ambulation, hold anticoagulation due to bleeding risk Code status: Full code F: IV fluids E: Replete as needed N: NPO A: Ambulatory Anticipated discharge place: Pending clinical course Anticipated discharge time: Pending clinical course Sloan Adam MD PGY-1 IM Dictation was produced using [employer] dictation software. please excuse any grammatical, word or spelling errors. I have seen and evaluated the patient today. Discussed with the resident and agree with the residents finding and plan as documented in the resident's note. Changes highlighted in blue font. Objective - Vital Signs Vital signs: Vital Signs Temp 98.1 F 12/01/24 02:00 Pulse 96 12/01/24 02:00 Resp 16 12/01/24 02:00 BP 149/84 12/01/24 02:00 Pulse Ox 96 12/01/24 02:00 FiO2 Intake & Output 11/30/24 12/01/24 12/01/24 18:59 06:59 18:59 Intake Total 1610 0 Balance 1610 0 Weight 127.006 kg Intake: Intake, IV Titration 1610 Amount Sodium Chloride 0.9% 1, 1560 000 ml @ 130 mls/hr IV . Q7H42M KRISTINE Rx#:[id number] cefTRIAXone 2 gm In 50 Dextrose 5% in Water 50 ml @ 100 mls/hr IVPB Q24HR KRISTINE Rx#:[id number] Oral 0 Other: Voiding Method Toilet Toilet # Voids 2 - Labs CBC & Chem 7: 12/01/24 10:59 12/01/24 10:59 Labs: Abnormal Lab Results - Last 24 Hours (Table) 11/30/24 11/30/24 Range/Units 06:54 06:54 Hgb 7.2 L (12.0-15.0) g/dL Hct 29.7 L (37.2-46.3) % MCV 63.5 L (80.0-97.0) fL MCH 15.4 L (27.0-32.0) pg MCHC 24.2 L (32.0-37.0) g/dL MPV 9.3 L (9.5-12.2) fL Chloride 111 H (98-107) mmol/L Iron 16 L (50-170) UG/DL % Saturation 4.02 L (12.00-45.00) AST 64 H (14-36) U/L ALT 52 H (4-34) U/L
[2024-12-01] MEDS: HYDROcodone/APAP 5-325MG 1 EACH TAB PO PRN (15:09)
[2024-12-01] MEDS ORDERED: BACLOFEN 10 MG TAB PO PRN (15:11)
--- NOTE | 2024-12-01 15:58 | P.DS ---
Providers Date of admission: 11/30/24 02:16 Discharge Diagnosis: Right-sided nephrolithiasis without hydroureteronephrosis Acute pyelonephritis Iron deficiency anemia GERD Hypothyroidism Hospital Course: Patient is a 44-year-old female with history of hypothyroidism, anemia who presents with right-sided flank pain. Patient is a transfer from [place] and was diagnosed with UTI and [address] abdomen pelvis showed calculus of distal right ureter 3 mm stone with no hydronephrosis. UA was positive for nitrates, bacteria, RBC 2+, blood. She was given 1 g Rocephin. Patient states that pain began Wednesday night and travels from her right flank to her right groin. She does have some mild burning sensation while urinating. She is experienced no hematuria and takes no blood thinners. She denies any rectal bleeding. She also has some associated nausea which has improved at this time. Currently she denies fever, chills, chest pain, dyspnea, and dizziness. Labs significant for hemoglobin 7.0, platelets 346, glucose 119, AST 102, ALT 49. Imaging and labs from other facility reviewed in HPI: CT abdomen pelvis showed calculus of distal right ureter 3 mm stone with no hydronephrosis. Patient was admitted for further evaluation of acute pyelonephritis secondary to right-sided nephrolithiasis with urology consulted. Patient was seen and evaluated by urology. Patient was placed on IV antibiotics. Patient underwent cystoscopy with right ureteroscopic garima with retrograde pyelogram. it is believed that the calculus has passed and no urinary stent was necessary. Patient is hemodynamically stable and cleared by urology. Of note further lab workup displayed she had iron deficiency and for that she will be placed on iron supplementation with vitamin C. She is also being discharged with oral antibiotics to finish the remainder of her course. She will follow-up with her PCP and urologist. Patient seen and examined at bedside. Vital signs reviewed and stable. Physical examination: Vital signs reviewed General: non toxic, no distress, appears at stated age, normal weight Derm: no unusual rashes/lesions, warm Head: atraumatic, normocephalic, symmetric Eyes: EOMI, anicteric sclera, pupils equal round reactive to light Cardiovascular: S1S2 reg, no murmur, positive dorsalis pedis pulse bilateral, no edema Lungs: CTA bilateral, no rhonchi, no rales, no accessory muscle use Abdominal: soft, right flank tenderness to palpation, no guarding Ext: muscle strength 5 out of 5 in all 4 extremities grossly, no gross muscle atrophy Neuro: CN II-XI grossly intact, no gross focal neuro deficits Psych: Alert, oriented to person, place, and time A total of greater than 30 minutes of time were spent preparing this complex discharge summary. Patient was discharge on December 01, 2024 at 3:45 PM. Sloan Adam MD PGY-1 IM Dictation was produced using [email or web address] dictation software. please excuse any grammatical, word or spelling errors. I have seen and evaluated the patient today. Discussed with the resident and agree with the residents finding and plan as documented in the resident's note. Changes highlighted in blue font. Expected date of discharge: 12/01/24 Attending physician: Tamra Isaacs MD Consults: 11/30/24 02:15 Consult Physician Urgent Consulting Provider: Terrance Phillip Consult Reason/Comments: UTI with kidney stone Do you want consulting provider notified?: Yes, Notify in am Primary care physician: August Atkins, Patient Condition at Discharge: Fair Plan - Discharge Summary New Discharge Prescriptions: New Ferrous Sulfate [Iron (65 MG Elemental)] 325 mg PO DAILY #30 tab Cefdinir [Omnicef] 300 mg PO Q12HR 5 Days #10 capsule Ascorbic Acid [Vitamin C] 500 mg PO DAILY #30 tab Continue rOPINIRole HCL [Requip] 1.5 mg PO HS PRN PRN Reason: RLS Cetirizine HCl [Zyrtec] 10 mg PO HS rOPINIRole HCL [Requip] 3 mg PO HS Omeprazole [PriLOSEC] 20 mg PO DAILY Levothyroxine Sodium [Synthroid] 200 mcg PO DAILY hydrOXYzine pamoate [Vistaril] 25 mg PO HS PRN PRN Reason: SLEEP Ipratropium-Albuterol Nebulize [Duoneb 0.5 mg-3 mg/3 ml Soln] 3 ml INHALATION RT-QID PRN PRN Reason: Shortness Of Breath Baclofen [Lioresal] 10 mg PO BID PRN PRN Reason: Muscle Spasm Montelukast [Singulair] 10 mg PO HS Discharge Medication List Baclofen [Lioresal] 10 mg PO BID PRN 11/30/24 [History] Cetirizine HCl [Zyrtec] 10 mg PO HS 11/30/24 [History] Ipratropium-Albuterol Nebulize [Duoneb 0.5 mg-3 mg/3 ml Soln] 3 ml INHALATION RT-QID PRN 11/30/24 [History] Levothyroxine Sodium [Synthroid] 200 mcg PO DAILY 11/30/24 [History] Montelukast [Singulair] 10 mg PO HS 11/30/24 [History] Omeprazole [PriLOSEC] 20 mg PO DAILY 11/30/24 [History] hydrOXYzine pamoate [Vistaril] 25 mg PO HS PRN 11/30/24 [History] rOPINIRole HCL [Requip] 1.5 mg PO HS PRN 11/30/24 [History] rOPINIRole HCL [Requip] 3 mg PO HS 11/30/24 [History] Ascorbic Acid [Vitamin C] 500 mg PO DAILY #30 tab 12/01/24 [Rx] Cefdinir [Omnicef] 300 mg PO Q12HR 5 Days #10 capsule 12/01/24 [Rx] Ferrous Sulfate [Iron (65 MG Elemental)] 325 mg PO DAILY #30 tab 12/01/24 [Rx] Follow up Appointment(s)/Referral(s): Terrance Phillip MD [STAFF PHYSICIAN] - 10 Days August Atkins DO [Primary Care Provider] - 1-2 days Patient Instructions/Handouts: Kidney Infection (DC) Activity/Diet/Wound Care/Special Instructions: Please follow up with urologist and PCP. Discharge Disposition: HOME SELF-CARE
[2024-12-01] MEDS ORDERED: SENNOSIDES-DOCUSATE SODIUM 1 EACH TAB PO SCH (21:00)
[2024-12-02] MEDS ORDERED: ASCORBIC ACID 500 MG TAB PO SCH (09:00)
[2024-12-02] MEDS ORDERED: FERROUS SULFATE 325 MG TAB PO SCH (09:00)
[2024-12-02] MEDS ORDERED: SENNOSIDES-DOCUSATE SODIUM 1 EACH TAB PO SCH (09:00)
== END 2024-12-01 18:22 | disposition home or self-care (01) | DRG 465 ==
LOC: EC 00:46 → 5NMEDONC 02:16
PROVIDERS: ADMIT Internal Medicine; ATTEND Internal Medicine
PROC: BT1D1ZZ Fluoroscopy of Right Kidney, Ureter and Bladder using Low Osmolar Contrast (ICD-10-PCS; principal; 2024-12-01 12:45)
PROC: 0TJ98ZZ Inspection of Ureter, Via Natural or Artificial Opening Endoscopic (ICD-10-PCS; principal; 2024-12-01 12:45)
DX: N20.2 Calculus of kidney with calculus of ureter (principal); N10 Acute pyelonephritis; D50.9 Iron deficiency anemia, unspecified; E03.9 Hypothyroidism, unspecified; B96.20 Unspecified Escherichia coli [E. coli] as the cause of diseases classified elsewhere; F17.200 Nicotine dependence, unspecified, uncomplicated; K21.9 Gastro-esophageal reflux disease without esophagitis; Z79.890 Hormone replacement therapy; Z79.899 Other long term (current) drug therapy; Z28.310 Unvaccinated for COVID-19
CPT/HCPCS: 36415; 74420; 80048; 80053; 81001; 82272; 83540; 83550; 83605; 83735; 85025; 86850; 86900; 86901; 87086; 94640; 96361; 96374; 96375; 99285